=== PATIENT | female | born 1975 | race Caucasian/White ===

== ENCOUNTER 2017-12-17 09:01 | Emergency (ER) | payer BC ==
[~2017-12-17] VITALS: Ht 165.1 cm; Wt 63.9 kg
[2017-12-17 09:16] VITALS: BP 105/52; PULSE 73; RESP 16; TEMP 98.3; O2SAT 98
[2017-12-17] MEDS ORDERED: MIREIUD I-UTERINE (09:28)
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
[2017-12-17] MEDS ORDERED: ACETAMINOPHEN 325 MG TAB PO ONE (10:00)
[2017-12-17] MEDS ORDERED: ONDANSETRON ODT 4 MG TAB PO ONE (10:00)
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
[2017-12-17 11:00] VITALS: BP 91/52; PULSE 62; RESP 16; O2SAT 98
[2017-12-17] MEDS ORDERED: TYLE325T PO (11:31)
[2017-12-17] MEDS ORDERED: DIAZEPAM 5 MG TAB PO ONE (11:45)
[2017-12-17 11:48] VITALS: BP 87/52; PULSE 57; RESP 16; O2SAT 99
[2017-12-17] MEDS ORDERED: KETOROLAC TROMETHAMINE 60 MG/2 ML (IM) VIAL IM ONE (12:00)
[2017-12-17 12:17] VITALS: BP 91/52
--- NOTE | 2017-12-17 16:58 | EKG ---
Date Performed: 12/17/2017 Time Performed: 09:59:28 PTAGE: 42 years EKG: Sinus rhythm POSSIBLE RIGHT ATRIAL ENLARGEMENT POSSIBLE RIGHT VENTRICULAR CONDUCTION DELAY BORDERLINE ECG NO PREVIOUS TRACING DOCTOR: Marcela Rasumssen Interpretating Date/Time 12/17/2017 16:57:31
== END 2017-12-17 12:18 | disposition home or self-care (01) ==
LOC: PHED 09:01
DX: S09.90XA Unspecified injury of head, initial encounter (principal); V93.88XA Other injury due to other accident on board other unpowered watercraft, initial encounter; Y93.18 Activity, surfing, windsurfing and boogie boarding; R94.31 Abnormal electrocardiogram [ECG] [EKG]
CPT/HCPCS: 70450; 72125; 93005; 96372; 99284; J1885